=== PATIENT | female | born 1945 | race Caucasian/White ===

== ENCOUNTER → 2023-04-19 | Outpatient (CLI) | payer OTHER | END | disposition home or self-care (01) | LOC: RAH 12:54 | PROVIDERS: ATTEND Family Medicine | DX: M19.031 Primary osteoarthritis, right wrist (principal); M25.531 Pain in right wrist; R22.31 Localized swelling, mass and lump, right upper limb | CPT/HCPCS: 73110 ==

== ENCOUNTER → 2023-07-08 | Outpatient (CLI) | payer OTHER ==
[2023-07-08 12:18] LABS: ALBUMIN 3.7 g/dL (3.5-5.0); BILIRUBIN,TOTAL 0.7 mg/dL (0.2-1.0); CREATININE 0.8 mg/dL (0.5-1.5); POTASSIUM 4.3 mmol/L (3.5-5.1); TOTAL PROTEIN, SERUM 7.6 g/dL (6.0-8.3)
== END | disposition home or self-care (01) ==
LOC: LAB 08:43
PROVIDERS: ATTEND Internal Medicine Cardiovascular Disease
DX: I65.22 Occlusion and stenosis of left carotid artery (principal); E78.5 Hyperlipidemia, unspecified; I10 Essential (primary) hypertension
CPT/HCPCS: 36415; 80053; 80061